=== PATIENT | male | born 1945 | race Asian ===

== ENCOUNTER 2018-02-18 13:45 | Emergency (ER) | payer MEDICARE, OTHER ==
[~2018-02-18] VITALS: Ht 162.6 cm; Wt 78.6 kg
[~2018-02-18 13:45] MED LIST: ASPI-556 PO; DIVA-54 PO; DIVA500T2 PO; FISH1CAP8 PO; LEVO100 PO; METO-408 PO; PRAV40TA4 PO
[2018-02-18] MEDS ORDERED: ATOR20TA86 PO (13:48)
[2018-02-18] MEDS ORDERED: METF500T6 PO (13:48)
[2018-02-18 13:59] LABS: GLUCOSE,POINT OF CARE 161 MG/DL (70-110)
[2018-02-18 14:47] LABS: BASOPHILS % (AUTO) 0.5 % (0.0-2.0); EOSINOPHILS % (AUTO) 1.8 % (1.0-6.0); HEMATOCRIT 45.1 % (41-53); LYMPHOCYTES # (AUTO) 2.5 K/uL (1.0-4.8); LYMPHOCYTES % (AUTO) 33.5 % (22.0-44.0); MEAN CORPUSCULAR HEMOGLOBIN 31.3 pg (26.0-34.0); MEAN CORPUSCULAR HGB CONC 33.2 G/dL (31.0-37.0); MEAN CORPUSCULAR VOLUME 94 fL (80-100); MONOCYTES # (AUTO) 0.6 K/uL (0.1-1.0); MONOCYTES % (AUTO) 8.5 % (2.0-9.0); NEUTROPHILS # (AUTO) 4.1 K/uL (1.8-7.7); NEUTROPHILS % (AUTO) 55.7 % (40.0-70.0); PLATELET COUNT (AUTO) 311 K/uL (150-450); RED BLOOD CELL COUNT(AUTO) 4.79 MIL/uL (4.50-5.90); RED CELL DISTRIBUTION WIDTH 14.6 % (11.5-14.5)
[2018-02-18 15:17] LABS: ANION GAP 10 mmol/L (8-16); CALCIUM, TOTAL 9.7 mg/dL (8.8-10.5); CARBON DIOXIDE 26 mmol/L (22-29); CHLORIDE 101 mmol/L (98-107); CREATININE 1.08 mg/dL (0.60-1.30); GLOMERULAR FILTR. RATE CALC > 60 mL/min (>60); GLUCOSE,RANDOM 154 mg/dL (70-110); POTASSIUM 3.6 mmol/L (3.5-5.1); SODIUM SERUM 137 mmol/L (136-145); UREA NITROGEN, BLOOD 17 mg/dL (7-18)
[2018-02-18 15:24] LABS: ALANINE AMINOTRANSFERASE 47 U/L (12-78); ALBUMIN 3.9 g/dL (3.4-5.0); ALKALINE PHOSPHATASE 68 U/L (46-116); ASPARTATE AMINOTRANSFERASE 24 U/L (15-37); BILIRUBIN,TOTAL 0.4 mg/dL (0.1-1.0); LIPASE 184 U/L (73-393)
[2018-02-18 16:10] LABS: APPEARANCE,URINE CLEAR (CLEAR); BILIRUBIN,URINE NEGATIVE (NEGATIVE); GLUCOSE, URINE (UA) NEGATIVE (NEGATIVE); KETONES,URINE NEGATIVE (NEGATIVE); LEUKOCYTE ESTERASE ,URINE NEGATIVE (NEGATIVE); NITRATE,URINE NEGATIVE (NEGATIVE); OCCULT BLOOD,URINE NEGATIVE (NEGATIVE); PROTEIN,URINE NEGATIVE (NEGATIVE); UROBILINOGEN,URINE 0.2 mg/dL (<=1.0)
[2018-02-18] MEDS ORDERED: SODIUM CHLORIDE 0.9% 1,000 ML IV ONE (17:30)
[2018-02-18] MEDS ORDERED: SODIUM CHLORIDE 0.9% 100 ML ONE (17:53)
[2018-02-18] MEDS ORDERED: IOVERSOL 320 MG/ML 100 ML VIAL ONE (17:53)
[2018-02-18 20:14] VITALS: BP 128/89
== END 2018-02-18 20:21 | disposition home or self-care (01) ==
LOC: EMS 13:46
DX: R10.32 Left lower quadrant pain (principal); F31.9 Bipolar disorder, unspecified; E78.00 Pure hypercholesterolemia, unspecified; I10 Essential (primary) hypertension; Z88.0 Allergy status to penicillin; Z79.82 Long term (current) use of aspirin; Z79.84 Long term (current) use of oral hypoglycemic drugs
CPT/HCPCS: 36415; 74177; 80053; 81003; 82962; 83690; 85025; 85610; 85730; 93005; 99285; J7030; J7050; Q9967

== ENCOUNTER 2019-01-12 21:48 | Inpatient (IN) | payer MEDICARE, MEDICAID ==
[~2019-01-12] VITALS: Ht 157.5 cm; Wt 65.3 kg
[~2019-01-12 21:48] MED LIST changes: +ATOR20TA86 PO; -DIVA500T2 PO; +METF-960 PO; -PRAV40TA4 PO
[2019-01-12] MEDS ORDERED: LEVO5TAB29 PO (22:27)
[2019-01-12] MEDS ORDERED: TAMS-1 PO (22:27)
[2019-01-12] MEDS ORDERED: ISOS30TA6 PO (22:27)
[2019-01-12] MEDS ORDERED: METO25XL PO (22:27)
[2019-01-12 22:35] LABS: BASOPHILS % (AUTO) 0.6 % (0.0-2.0); EOSINOPHILS % (AUTO) 1.5 % (1.0-6.0); HEMATOCRIT 41.8 % (41-53); HEMOGLOBIN 13.5 g/dL (13.5-17.5); LYMPHOCYTES # (AUTO) 1.4 K/uL (1.0-4.8); MEAN CORPUSCULAR HEMOGLOBIN 30.8 pg (26.0-34.0); MEAN CORPUSCULAR HGB CONC 32.3 G/dL (31.0-37.0); MEAN CORPUSCULAR VOLUME 95 fL (80-100); MONOCYTES # (AUTO) 0.8 K/uL (0.1-1.0); MONOCYTES % (AUTO) 14.1 % (2.0-9.0); NEUTROPHILS # (AUTO) 3.5 K/uL (1.8-7.7); NEUTROPHILS % (AUTO) 59.8 % (40.0-70.0); PLATELET COUNT (AUTO) 304 K/uL (150-450); RED BLOOD CELL COUNT(AUTO) 4.39 MIL/uL (4.50-5.90); RED CELL DISTRIBUTION WIDTH 15.2 % (11.5-14.5)
[2019-01-12 22:44] LABS: GLUCOSE,POINT OF CARE 166 MG/DL (70-110)
[2019-01-12 22:47] LABS: ANION GAP 10 mmol/L (8-16); CALCIUM, TOTAL 9.5 mg/dL (8.8-10.5); CARBON DIOXIDE 26 mmol/L (22-29); CHLORIDE 107 mmol/L (98-107); CREATININE 0.97 mg/dL (0.60-1.30); GLOMERULAR FILTR. RATE CALC > 60 mL/min (>60); GLUCOSE,RANDOM 163 mg/dL (70-110); POTASSIUM 3.2 mmol/L (3.5-5.1); SODIUM SERUM 143 mmol/L (136-145); UREA NITROGEN, BLOOD 19 mg/dL (7-18)
[2019-01-12 23:02] LABS: ALANINE AMINOTRANSFERASE 56 U/L (12-78); ALBUMIN 3.4 g/dL (3.4-5.0); ALKALINE PHOSPHATASE 55 U/L (46-116); ASPARTATE AMINOTRANSFERASE 49 U/L (15-37); BILIRUBIN,TOTAL 0.5 mg/dL (0.1-1.0); THYROID STIMULATING HORMONE 2.48 uIU/mL (0.36-3.74); TOTAL PROTEIN, SERUM 7.2 g/dL (6.4-8.2); VALPROIC ACID 24 mcg/mL (50-100)
[2019-01-12 23:52] LABS: AMPHET/METH SCREEN,URINE NEGATIVE (NEGATIVE); BARBITURATE SCREEN, URINE NEGATIVE (NEGATIVE); BENZODIAZEPINES SCREEN,URINE NEGATIVE (NEGATIVE); CANNABINOID SCREEN,URINE NEGATIVE (NEGATIVE); COCAINE SCREEN,URINE NEGATIVE (NEGATIVE); METHADONE SCREEN, URINE NEGATIVE (NEGATIVE); OPIATE SCREEN,URINE NEGATIVE (NEGATIVE); PHENCYCLIDINE SCREEN,URINE NEGATIVE (NEGATIVE)
[2019-01-13] MEDS ORDERED: POTASSIUM CHLORIDE 20 MEQ ER TABLET PO ONE (03:30)
[2019-01-13 03:43] LABS: APPEARANCE,URINE CLEAR (CLEAR); GLUCOSE, URINE (UA) 100 mg/dL (NEGATIVE); KETONES,URINE 15 mg/dL (NEGATIVE); LEUKOCYTE ESTERASE ,URINE NEGATIVE (NEGATIVE); NITRATE,URINE NEGATIVE (NEGATIVE); OCCULT BLOOD,URINE NEGATIVE (NEGATIVE); PROTEIN,URINE POS 1+ (NEGATIVE)
[2019-01-13 03:44] LABS: BILIRUBIN,URINE PRELIM. POSITIVE (NEGATIVE)
[2019-01-13 03:51] LABS: BACTERIA,URINE Few /HPF (None Seen); RBC,URINE 0-2 /HPF (0-2); WBC,URINE 0-2 /HPF (0-5)
[2019-01-13 03:52] LABS: CALCIUM OXALATE CRYSTALS,UR Many /LPF (None Seen); SQUAMOUS EPITHELIAL CELL,UR None Seen /LPF (None Seen)
[2019-01-13] MEDS ORDERED: LORazepam 2 MG TABLET PO PRN (04:45)
[2019-01-13] MEDS ORDERED: ZOLPIDEM TARTRATE 10 MG TABLET PO PRN (04:45)
[2019-01-13] MEDS ORDERED: HALOPERIDOL 5 MG TABLET PO PRN (04:45)
[2019-01-13 06:26] VITALS: BP 156/71
[2019-01-13] MEDS ORDERED: IBUPROFEN 600 MG TABLET PO PRN (13:00)
[2019-01-13] MEDS: DIVALPROEX SODIUM 500 MG ER TABLET PO SCH (17:05)
[2019-01-13] MEDS: MetFORMIN HCL 500 MG TABLET PO SCH (17:05)
[2019-01-13 18:50] VITALS: BP 117/58
[2019-01-13] MEDS: ATORVASTATIN CALCIUM 20 MG TABLET PO SCH (22:33)
[2019-01-14 00:50] VITALS: BP 152/80
[2019-01-14] MEDS: LEVOTHYROXINE SODIUM 100 MCG TABLET PO SCH (07:04)
[2019-01-14] MEDS: MetFORMIN HCL 500 MG TABLET PO SCH ×2 (07:04→16:48)
[2019-01-14 07:27] LABS: ANION GAP 7 mmol/L (8-16); CALCIUM, TOTAL 9.5 mg/dL (8.8-10.5); CARBON DIOXIDE 28 mmol/L (22-29); CHLORIDE 102 mmol/L (98-107); CHOL/HDL RATIO 2.8 (4.2-7.3); CHOLESTEROL 130 mg/dL (131-200); CREATINE KINASE, TOTAL ONLY 653 U/L (39-308); CREATININE 0.82 mg/dL (0.60-1.30); FREE T4 (FREE THYROXINE) 1.16 ng/dL (0.76-1.46); GLOMERULAR FILTR. RATE CALC > 60 mL/min (>60); GLUCOSE,RANDOM 91 mg/dL (70-110); HDL CHOLESTEROL 46 mg/dL (40-60); LDL CHOL (CALC.) 70 mg/dL (0-130); POTASSIUM 3.7 mmol/L (3.5-5.1); SODIUM SERUM 137 mmol/L (136-145); THYROID STIMULATING HORMONE 4.98 uIU/mL (0.36-3.74); TRIGLYCERIDES 68 mg/dL (15-150); UREA NITROGEN, BLOOD 9 mg/dL (7-18)
[2019-01-14 07:30] LABS: HEMOGLOBIN A1C 6.7 % (4.5-6.2)
[2019-01-14] MEDS: ASPIRIN 81 MG EC TABLET PO SCH (08:16)
[2019-01-14] MEDS: DIVALPROEX SODIUM 500 MG ER TABLET PO SCH ×2 (08:17→16:53)
[2019-01-14] MEDS: ISOSORBIDE MONONITRATE 30 MG ER TABLET PO SCH (08:17)
[2019-01-14] MEDS: METOPROLOL SUCCINATE 25 MG ER TABLET PO SCH (08:17)
[2019-01-14] MEDS ORDERED: TAMSULOSIN HCL 0.4 MG CAPSULE PO SCH (09:00)
[2019-01-14 09:51] VITALS: BP 157/68
[2019-01-14] MEDS: HALOPERIDOL 5 MG TABLET PO SCH (16:53)
[2019-01-14 17:51] VITALS: BP 134/68
[2019-01-14] MEDS ORDERED: GLUCAGON,HUMAN RECOMBINANT 1 MG VIAL IM PRN (19:15)
[2019-01-14] MEDS: ATORVASTATIN CALCIUM 20 MG TABLET PO SCH (21:00)
[2019-01-15 00:59] VITALS: BP 112/82
[2019-01-15 01:49] LABS: GLUCOMETER DEV NAME(LOC) 3E.I; GLUCOSE,POINT OF CARE 98 MG/DL (70-110)
[2019-01-15 06:14] LABS: GLUCOMETER DEV NAME(LOC) 3E.I; GLUCOSE,POINT OF CARE 77 MG/DL (70-110)
[2019-01-15] MEDS: MetFORMIN HCL 500 MG TABLET PO SCH ×2 (07:10→17:46)
[2019-01-15] MEDS: LEVOTHYROXINE SODIUM 100 MCG TABLET PO SCH (07:10)
[2019-01-15 08:00] VITALS: BP 137/61
[2019-01-15] MEDS: METOPROLOL SUCCINATE 25 MG ER TABLET PO SCH (08:33)
[2019-01-15] MEDS: ISOSORBIDE MONONITRATE 30 MG ER TABLET PO SCH (08:33)
[2019-01-15] MEDS: ASPIRIN 81 MG EC TABLET PO SCH (08:33)
[2019-01-15] MEDS: HALOPERIDOL 5 MG TABLET PO SCH (09:00)
[2019-01-15] MEDS: DIVALPROEX SODIUM 500 MG ER TABLET PO SCH ×2 (09:00→20:05)
[2019-01-15] MEDS: NITROGLYCERIN 0.4 MG SUBLINGUAL TABLET #25 SL PRN (10:01)
[2019-01-15 10:02] VITALS: BP 129/81
[2019-01-15] MEDS: GuaiFENesin/D-METHORPHAN [SUGAR-FREE] 200-20MG/10 ML SYRUP UDCUP PO PRN (10:02)
[2019-01-15 11:49] LABS: GLUCOMETER DEV NAME(LOC) 3EX.; GLUCOSE,POINT OF CARE 87 MG/DL (70-110)
[2019-01-15] MEDS: INSULIN LISPRO 100 UNITS/ML SQ PRN (12:23)
[2019-01-15 16:39] LABS: GLUCOMETER DEV NAME(LOC) 3EX.; GLUCOSE,POINT OF CARE 82 MG/DL (70-110)
[2019-01-15] MEDS ORDERED: HALOPERIDOL 5 MG TABLET PO SCH (17:00)
[2019-01-15 17:18] VITALS: BP 143/75
[2019-01-15] MEDS: HALOPERIDOL 10 MG TABLET PO SCH (20:03)
[2019-01-15] MEDS: TAMSULOSIN HCL 0.4 MG CAPSULE PO SCH (20:03)
[2019-01-15] MEDS: ATORVASTATIN CALCIUM 20 MG TABLET PO SCH (20:05)
[2019-01-15 21:25] LABS: GLUCOMETER DEV NAME(LOC) 3E.I; GLUCOSE,POINT OF CARE 76 MG/DL (70-110)
[2019-01-16 04:40] VITALS: BP 123/69
[2019-01-16] MEDS: GuaiFENesin/D-METHORPHAN [SUGAR-FREE] 200-20MG/10 ML SYRUP UDCUP PO PRN (06:08)
[2019-01-16 06:29] LABS: GLUCOMETER DEV NAME(LOC) 3E.I; GLUCOSE,POINT OF CARE 88 MG/DL (70-110)
[2019-01-16] MEDS: INSULIN LISPRO 100 UNITS/ML SQ PRN (06:47)
[2019-01-16] MEDS: LEVOTHYROXINE SODIUM 100 MCG TABLET PO SCH (06:55)
[2019-01-16] MEDS: MetFORMIN HCL 500 MG TABLET PO SCH (07:03)
[2019-01-16 08:40] VITALS: BP 163/84
[2019-01-16] MEDS: ASPIRIN 81 MG EC TABLET PO SCH (08:45)
[2019-01-16] MEDS: ISOSORBIDE MONONITRATE 30 MG ER TABLET PO SCH (08:45)
[2019-01-16] MEDS: METOPROLOL SUCCINATE 25 MG ER TABLET PO SCH (08:45)
[2019-01-16 11:34] LABS: GLUCOMETER DEV NAME(LOC) 3EX.; GLUCOSE,POINT OF CARE 120 MG/DL (70-110)
[2019-01-16 17:14] LABS: GLUCOMETER DEV NAME(LOC) 3EX.; GLUCOSE,POINT OF CARE 111 MG/DL (70-110)
[2019-01-16 17:44] VITALS: BP 154/84
[2019-01-16] MEDS: TAMSULOSIN HCL 0.4 MG CAPSULE PO SCH (20:28)
[2019-01-16] MEDS: ATORVASTATIN CALCIUM 20 MG TABLET PO SCH (20:28)
[2019-01-16] MEDS: HALOPERIDOL 10 MG TABLET PO SCH (20:33)
[2019-01-16] MEDS: DIVALPROEX SODIUM 500 MG ER TABLET PO SCH (20:33)
[2019-01-16 20:34] LABS: GLUCOMETER DEV NAME(LOC) 3EX.; GLUCOSE,POINT OF CARE 108 MG/DL (70-110)
[2019-01-17 05:32] VITALS: BP 163/81
[2019-01-17 05:35] LABS: GLUCOMETER DEV NAME(LOC) 3E.I; GLUCOSE,POINT OF CARE 85 MG/DL (70-110)
[2019-01-17] MEDS: LEVOTHYROXINE SODIUM 100 MCG TABLET PO SCH (07:12)
[2019-01-17] MEDS: ASPIRIN 81 MG EC TABLET PO SCH (08:56)
[2019-01-17] MEDS: METOPROLOL SUCCINATE 25 MG ER TABLET PO SCH (08:57)
[2019-01-17] MEDS: ISOSORBIDE MONONITRATE 30 MG ER TABLET PO SCH (08:57)
[2019-01-17] MEDS: MetFORMIN HCL 500 MG TABLET PO SCH ×2 (08:59→09:10)
[2019-01-17 09:01] VITALS: BP 133/82
[2019-01-17] MEDS: NITROGLYCERIN 0.4 MG SUBLINGUAL TABLET #25 SL PRN (09:02)
[2019-01-17 10:44] LABS: GLUCOMETER DEV NAME(LOC) 3EX.; GLUCOSE,POINT OF CARE 102 MG/DL (70-110)
[2019-01-17 11:19] LABS: GLUCOMETER DEV NAME(LOC) 3EX.; GLUCOSE,POINT OF CARE 143 MG/DL (70-110)
[2019-01-17 12:05] LABS: GLUCOMETER DEV NAME(LOC) 3EX.; GLUCOSE,POINT OF CARE 102 MG/DL (70-110)
[2019-01-17] MEDS: HALOPERIDOL 5 MG TABLET PO SCH (17:04)
[2019-01-17 17:20] LABS: GLUCOMETER DEV NAME(LOC) 3EX.; GLUCOSE,POINT OF CARE 108 MG/DL (70-110)
[2019-01-17] MEDS: TAMSULOSIN HCL 0.4 MG CAPSULE PO SCH (20:48)
[2019-01-17] MEDS: ATORVASTATIN CALCIUM 20 MG TABLET PO SCH (20:52)
[2019-01-17] MEDS: DIVALPROEX SODIUM 500 MG ER TABLET PO SCH (20:52)
[2019-01-17 22:02] VITALS: BP 148/85
[2019-01-17 22:10] LABS: GLUCOMETER DEV NAME(LOC) 3EX.; GLUCOSE,POINT OF CARE 106 MG/DL (70-110)
[2019-01-18 06:54] LABS: GLUCOMETER DEV NAME(LOC) 3E.I; GLUCOSE,POINT OF CARE 97 MG/DL (70-110)
[2019-01-18] MEDS: LEVOTHYROXINE SODIUM 100 MCG TABLET PO SCH (07:05)
[2019-01-18 08:00] VITALS: BP 134/77
[2019-01-18] MEDS: METOPROLOL SUCCINATE 25 MG ER TABLET PO SCH (08:24)
[2019-01-18] MEDS: ASPIRIN 81 MG EC TABLET PO SCH (08:24)
[2019-01-18] MEDS: MetFORMIN HCL 500 MG TABLET PO SCH (08:24)
[2019-01-18] MEDS: HALOPERIDOL 5 MG TABLET PO SCH ×2 (08:25→16:09)
[2019-01-18] MEDS: ISOSORBIDE MONONITRATE 30 MG ER TABLET PO SCH (08:25)
[2019-01-18 09:52] VITALS: BP 130/77
[2019-01-18] MEDS: NITROGLYCERIN 0.4 MG SUBLINGUAL TABLET #25 SL PRN (09:52)
[2019-01-18 11:55] LABS: GLUCOMETER DEV NAME(LOC) 3EX.; GLUCOSE,POINT OF CARE 122 MG/DL (70-110)
[2019-01-18 16:14] LABS: GLUCOMETER DEV NAME(LOC) 3EX.; GLUCOSE,POINT OF CARE 126 MG/DL (70-110)
[2019-01-18 16:15] VITALS: BP 119/63
[2019-01-18] MEDS: GuaiFENesin/D-METHORPHAN [SUGAR-FREE] 200-20MG/10 ML SYRUP UDCUP PO PRN (19:23)
[2019-01-18] MEDS: TAMSULOSIN HCL 0.4 MG CAPSULE PO SCH (20:05)
[2019-01-18] MEDS: DIVALPROEX SODIUM 500 MG ER TABLET PO SCH (20:05)
[2019-01-18] MEDS: ATORVASTATIN CALCIUM 20 MG TABLET PO SCH (20:05)
[2019-01-18 20:50] LABS: GLUCOMETER DEV NAME(LOC) 3EX.; GLUCOSE,POINT OF CARE 99 MG/DL (70-110)
[2019-01-19] MEDS: LEVOTHYROXINE SODIUM 100 MCG TABLET PO SCH (06:02)
[2019-01-19] MEDS: GuaiFENesin/D-METHORPHAN [SUGAR-FREE] 200-20MG/10 ML SYRUP UDCUP PO PRN ×2 (06:02→20:53)
[2019-01-19 06:05] LABS: GLUCOMETER DEV NAME(LOC) 3E.I; GLUCOSE,POINT OF CARE 88 MG/DL (70-110)
[2019-01-19 07:02] VITALS: BP 134/77
[2019-01-19] MEDS: HALOPERIDOL 5 MG TABLET PO SCH (08:44)
[2019-01-19] MEDS: MetFORMIN HCL 500 MG TABLET PO SCH (08:44)
[2019-01-19] MEDS: ASPIRIN 81 MG EC TABLET PO SCH (08:44)
[2019-01-19] MEDS: ISOSORBIDE MONONITRATE 30 MG ER TABLET PO SCH (08:45)
[2019-01-19] MEDS: METOPROLOL SUCCINATE 25 MG ER TABLET PO SCH (08:45)
[2019-01-19 09:13] VITALS: BP 135/79
[2019-01-19 11:20] LABS: GLUCOMETER DEV NAME(LOC) 3EX.; GLUCOSE,POINT OF CARE 94 MG/DL (70-110)
[2019-01-19 16:00] VITALS: BP 144/69
[2019-01-19 16:14] LABS: GLUCOMETER DEV NAME(LOC) 3EX.; GLUCOSE,POINT OF CARE 99 MG/DL (70-110)
[2019-01-19] MEDS: HALOPERIDOL 10 MG TABLET PO SCH (17:44)
[2019-01-19] MEDS: ATORVASTATIN CALCIUM 20 MG TABLET PO SCH ×2 (19:26→20:43)
[2019-01-19] MEDS: TAMSULOSIN HCL 0.4 MG CAPSULE PO SCH ×2 (19:26→20:43)
[2019-01-19] MEDS: DIVALPROEX SODIUM 500 MG ER TABLET PO SCH ×2 (19:27→20:43)
[2019-01-19 21:14] LABS: GLUCOMETER DEV NAME(LOC) 3EX.; GLUCOSE,POINT OF CARE 92 MG/DL (70-110)
[2019-01-20 04:29] VITALS: BP 112/67
[2019-01-20] MEDS: ACETAMINOPHEN 325 MG TABLET PO PRN ×2 (04:29→17:08)
[2019-01-20 06:14] LABS: GLUCOMETER DEV NAME(LOC) 3E.I; GLUCOSE,POINT OF CARE 85 MG/DL (70-110)
[2019-01-20] MEDS: LEVOTHYROXINE SODIUM 100 MCG TABLET PO SCH (07:07)
[2019-01-20 08:00] VITALS: BP 138/70
[2019-01-20] MEDS: ISOSORBIDE MONONITRATE 30 MG ER TABLET PO SCH (08:27)
[2019-01-20] MEDS: ASPIRIN 81 MG EC TABLET PO SCH (08:27)
[2019-01-20] MEDS: METOPROLOL SUCCINATE 25 MG ER TABLET PO SCH (08:27)
[2019-01-20] MEDS: MetFORMIN HCL 500 MG TABLET PO SCH (08:27)
[2019-01-20] MEDS: HALOPERIDOL 10 MG TABLET PO SCH ×2 (08:27→17:10)
[2019-01-20] MEDS: GuaiFENesin/D-METHORPHAN [SUGAR-FREE] 200-20MG/10 ML SYRUP UDCUP PO PRN ×2 (10:21→18:16)
[2019-01-20 11:14] LABS: GLUCOMETER DEV NAME(LOC) 3EX.; GLUCOSE,POINT OF CARE 109 MG/DL (70-110)
[2019-01-20 17:20] LABS: GLUCOMETER DEV NAME(LOC) 3EX.; GLUCOSE,POINT OF CARE 76 MG/DL (70-110)
[2019-01-20 19:26] VITALS: BP 135/88
[2019-01-20 20:40] LABS: GLUCOMETER DEV NAME(LOC) 3EX.; GLUCOSE,POINT OF CARE 100 MG/DL (70-110)
[2019-01-20 20:52] VITALS: BP 123/74
[2019-01-20] MEDS: NITROGLYCERIN 0.4 MG SUBLINGUAL TABLET #25 SL PRN (20:52)
[2019-01-20] MEDS: ATORVASTATIN CALCIUM 20 MG TABLET PO SCH (21:00)
[2019-01-20] MEDS: TAMSULOSIN HCL 0.4 MG CAPSULE PO SCH (21:00)
[2019-01-20] MEDS: DIVALPROEX SODIUM 500 MG ER TABLET PO SCH (21:00)
[2019-01-21 05:41] LABS: GLUCOMETER DEV NAME(LOC) 3E.I; GLUCOSE,POINT OF CARE 90 MG/DL (70-110)
[2019-01-21 05:54] VITALS: BP 121/78
[2019-01-21] MEDS: LEVOTHYROXINE SODIUM 100 MCG TABLET PO SCH (06:03)
[2019-01-21] MEDS: ACETAMINOPHEN 325 MG TABLET PO PRN ×2 (06:03→18:46)
[2019-01-21] MEDS: GuaiFENesin/D-METHORPHAN [SUGAR-FREE] 200-20MG/10 ML SYRUP UDCUP PO PRN ×2 (07:14→14:46)
[2019-01-21 09:55] VITALS: BP 117/65
[2019-01-21] MEDS: NITROGLYCERIN 0.4 MG SUBLINGUAL TABLET #25 SL PRN (09:57)
[2019-01-21] MEDS: ISOSORBIDE MONONITRATE 30 MG ER TABLET PO SCH (09:58)
[2019-01-21] MEDS: MetFORMIN HCL 500 MG TABLET PO SCH (09:58)
[2019-01-21] MEDS: ASPIRIN 81 MG EC TABLET PO SCH (09:58)
[2019-01-21] MEDS: METOPROLOL SUCCINATE 25 MG ER TABLET PO SCH (09:58)
[2019-01-21] MEDS: HALOPERIDOL 10 MG TABLET PO SCH ×2 (09:58→16:56)
[2019-01-21 11:29] LABS: GLUCOMETER DEV NAME(LOC) 3EX.; GLUCOSE,POINT OF CARE 92 MG/DL (70-110)
[2019-01-21] MEDS: INSULIN LISPRO 100 UNITS/ML SQ PRN ×3 (11:46→20:45)
[2019-01-21 16:50] VITALS: BP 100/57
[2019-01-21 17:10] LABS: GLUCOMETER DEV NAME(LOC) 3EX.; GLUCOSE,POINT OF CARE 96 MG/DL (70-110)
[2019-01-21 18:46] VITALS: BP 111/69
[2019-01-21] MEDS: ATORVASTATIN CALCIUM 20 MG TABLET PO SCH (20:17)
[2019-01-21] MEDS: DIVALPROEX SODIUM 500 MG ER TABLET PO SCH (20:17)
[2019-01-21] MEDS: TAMSULOSIN HCL 0.4 MG CAPSULE PO SCH (20:18)
[2019-01-21 20:45] LABS: GLUCOMETER DEV NAME(LOC) 3EX.; GLUCOSE,POINT OF CARE 104 MG/DL (70-110)
[2019-01-22 03:35] VITALS: BP 129/60
[2019-01-22] MEDS: ACETAMINOPHEN 325 MG TABLET PO PRN (03:40)
[2019-01-22 05:40] LABS: GLUCOMETER DEV NAME(LOC) 3E.I; GLUCOSE,POINT OF CARE 81 MG/DL (70-110)
[2019-01-22 06:50] VITALS: BP 121/61
[2019-01-22] MEDS: NITROGLYCERIN 0.4 MG SUBLINGUAL TABLET #25 SL PRN (06:50)
[2019-01-22] MEDS: LEVOTHYROXINE SODIUM 100 MCG TABLET PO SCH (07:03)
[2019-01-22] MEDS: ISOSORBIDE MONONITRATE 30 MG ER TABLET PO SCH (08:42)
[2019-01-22] MEDS: HALOPERIDOL 10 MG TABLET PO SCH ×2 (08:42→16:23)
[2019-01-22] MEDS: MetFORMIN HCL 500 MG TABLET PO SCH (08:42)
[2019-01-22] MEDS: ASPIRIN 81 MG EC TABLET PO SCH (08:42)
[2019-01-22] MEDS: METOPROLOL SUCCINATE 25 MG ER TABLET PO SCH (08:43)
[2019-01-22 10:18] VITALS: BP 128/69
[2019-01-22] MEDS: INSULIN LISPRO 100 UNITS/ML SQ PRN (11:25)
[2019-01-22 11:35] LABS: GLUCOMETER DEV NAME(LOC) 3EX.; GLUCOSE,POINT OF CARE 92 MG/DL (70-110)
[2019-01-22 16:50] LABS: GLUCOMETER DEV NAME(LOC) 3EX.; GLUCOSE,POINT OF CARE 104 MG/DL (70-110)
[2019-01-22 16:55] VITALS: BP 118/78
[2019-01-22] MEDS: DIVALPROEX SODIUM 500 MG ER TABLET PO SCH (21:00)
[2019-01-22] MEDS: TAMSULOSIN HCL 0.4 MG CAPSULE PO SCH (21:00)
[2019-01-22] MEDS: ATORVASTATIN CALCIUM 20 MG TABLET PO SCH (21:00)
[2019-01-22 22:50] LABS: GLUCOMETER DEV NAME(LOC) 3E.I; GLUCOSE,POINT OF CARE 117 MG/DL (70-110)
[2019-01-23 05:20] VITALS: BP 108/53
[2019-01-23] MEDS: NITROGLYCERIN 0.4 MG SUBLINGUAL TABLET #25 SL PRN (05:23)
[2019-01-23] MEDS: ACETAMINOPHEN 325 MG TABLET PO PRN ×3 (05:24→19:23)
[2019-01-23 06:00] LABS: GLUCOMETER DEV NAME(LOC) 3E.I; GLUCOSE,POINT OF CARE 83 MG/DL (70-110)
[2019-01-23] MEDS: LEVOTHYROXINE SODIUM 100 MCG TABLET PO SCH (06:50)
[2019-01-23] MEDS: METOPROLOL SUCCINATE 25 MG ER TABLET PO SCH (08:12)
[2019-01-23] MEDS: ASPIRIN 81 MG EC TABLET PO SCH (08:12)
[2019-01-23] MEDS: HALOPERIDOL 10 MG TABLET PO SCH ×2 (08:12→17:27)
[2019-01-23] MEDS: MetFORMIN HCL 500 MG TABLET PO SCH (08:12)
[2019-01-23] MEDS: ISOSORBIDE MONONITRATE 30 MG ER TABLET PO SCH (08:13)
[2019-01-23 08:19] VITALS: BP 110/70
[2019-01-23] MEDS: INSULIN LISPRO 100 UNITS/ML SQ PRN (11:35)
[2019-01-23 12:05] LABS: GLUCOMETER DEV NAME(LOC) 3EX.; GLUCOSE,POINT OF CARE 82 MG/DL (70-110)
[2019-01-23] MEDS: GuaiFENesin/D-METHORPHAN [SUGAR-FREE] 200-20MG/10 ML SYRUP UDCUP PO PRN (12:44)
[2019-01-23] MEDS ORDERED: DEXTROSE 50%-WATER 25 GM/50 ML SYG IVP PRN (14:15)
[2019-01-23 16:28] VITALS: BP 106/57
[2019-01-23 17:46] LABS: GLUCOMETER DEV NAME(LOC) 3EX.; GLUCOSE,POINT OF CARE 69 MG/DL (70-110)
[2019-01-23 19:23] VITALS: BP 109/58
[2019-01-23] MEDS: ATORVASTATIN CALCIUM 20 MG TABLET PO SCH (21:37)
[2019-01-23] MEDS: TAMSULOSIN HCL 0.4 MG CAPSULE PO SCH (21:37)
[2019-01-23] MEDS: DIVALPROEX SODIUM 500 MG ER TABLET PO SCH (21:37)
[2019-01-23 22:00] LABS: GLUCOMETER DEV NAME(LOC) 3EX.; GLUCOSE,POINT OF CARE 113 MG/DL (70-110)
[2019-01-24 05:54] LABS: GLUCOMETER DEV NAME(LOC) 3E.I; GLUCOSE,POINT OF CARE 92 MG/DL (70-110)
[2019-01-24 06:05] VITALS: BP 123/68
[2019-01-24] MEDS: ACETAMINOPHEN 325 MG TABLET PO PRN ×2 (06:09→17:40)
[2019-01-24] MEDS: LEVOTHYROXINE SODIUM 100 MCG TABLET PO SCH (06:09)
[2019-01-24] MEDS: ASPIRIN 81 MG EC TABLET PO SCH (08:06)
[2019-01-24] MEDS: MetFORMIN HCL 500 MG TABLET PO SCH (08:06)
[2019-01-24] MEDS: ISOSORBIDE MONONITRATE 30 MG ER TABLET PO SCH (08:06)
[2019-01-24] MEDS: HALOPERIDOL 10 MG TABLET PO SCH ×2 (08:06→17:35)
[2019-01-24] MEDS: METOPROLOL SUCCINATE 25 MG ER TABLET PO SCH (08:07)
[2019-01-24 09:10] VITALS: BP 120/62
[2019-01-24 11:45] LABS: GLUCOMETER DEV NAME(LOC) 3EX.; GLUCOSE,POINT OF CARE 98 MG/DL (70-110)
[2019-01-24] MEDS: INSULIN LISPRO 100 UNITS/ML SQ PRN ×3 (12:07→22:32)
[2019-01-24 16:00] VITALS: BP 121/70
[2019-01-24 16:25] LABS: GLUCOMETER DEV NAME(LOC) 3EX.; GLUCOSE,POINT OF CARE 107 MG/DL (70-110)
[2019-01-24] MEDS: TAMSULOSIN HCL 0.4 MG CAPSULE PO SCH (20:42)
[2019-01-24] MEDS: ATORVASTATIN CALCIUM 20 MG TABLET PO SCH (20:42)
[2019-01-24] MEDS: DIVALPROEX SODIUM 500 MG ER TABLET PO SCH (20:42)
[2019-01-25 03:46] VITALS: BP 109/70
[2019-01-25 05:55] LABS: GLUCOMETER DEV NAME(LOC) 3E.I; GLUCOSE,POINT OF CARE 84 MG/DL (70-110)
[2019-01-25] MEDS: LEVOTHYROXINE SODIUM 100 MCG TABLET PO SCH (06:26)
[2019-01-25] MEDS: ISOSORBIDE MONONITRATE 30 MG ER TABLET PO SCH (08:34)
[2019-01-25] MEDS: ASPIRIN 81 MG EC TABLET PO SCH (08:34)
[2019-01-25] MEDS: HALOPERIDOL 10 MG TABLET PO SCH ×2 (08:34→16:21)
[2019-01-25] MEDS: MetFORMIN HCL 500 MG TABLET PO SCH (08:34)
[2019-01-25] MEDS: METOPROLOL SUCCINATE 25 MG ER TABLET PO SCH (08:34)
[2019-01-25] MEDS: GuaiFENesin/D-METHORPHAN [SUGAR-FREE] 200-20MG/10 ML SYRUP UDCUP PO PRN (09:50)
[2019-01-25 10:43] VITALS: BP 119/68
[2019-01-25 11:39] LABS: GLUCOMETER DEV NAME(LOC) 3EX.; GLUCOSE,POINT OF CARE 87 MG/DL (70-110)
[2019-01-25] MEDS: INSULIN LISPRO 100 UNITS/ML SQ PRN ×3 (11:45→21:10)
[2019-01-25 16:25] LABS: GLUCOMETER DEV NAME(LOC) 3EX.; GLUCOSE,POINT OF CARE 82 MG/DL (70-110)
[2019-01-25 17:36] VITALS: BP 106/62
[2019-01-25] MEDS: NITROGLYCERIN 0.4 MG SUBLINGUAL TABLET #25 SL PRN (19:19)
[2019-01-25 19:21] VITALS: BP 131/60
[2019-01-25 20:24] LABS: GLUCOMETER DEV NAME(LOC) 3EX.; GLUCOSE,POINT OF CARE 104 MG/DL (70-110)
[2019-01-25] MEDS: TAMSULOSIN HCL 0.4 MG CAPSULE PO SCH (20:40)
[2019-01-25] MEDS: DIVALPROEX SODIUM 500 MG ER TABLET PO SCH (20:40)
[2019-01-25] MEDS: ATORVASTATIN CALCIUM 20 MG TABLET PO SCH (20:40)
[2019-01-26 05:35] LABS: GLUCOMETER DEV NAME(LOC) 3E.I; GLUCOSE,POINT OF CARE 89 MG/DL (70-110)
[2019-01-26] MEDS: LEVOTHYROXINE SODIUM 100 MCG TABLET PO SCH (07:10)
[2019-01-26] MEDS: MetFORMIN HCL 500 MG TABLET PO SCH (08:14)
[2019-01-26] MEDS: ASPIRIN 81 MG EC TABLET PO SCH (08:15)
[2019-01-26] MEDS: ISOSORBIDE MONONITRATE 30 MG ER TABLET PO SCH (08:15)
[2019-01-26] MEDS: HALOPERIDOL 10 MG TABLET PO SCH ×2 (08:15→17:38)
[2019-01-26] MEDS: METOPROLOL SUCCINATE 25 MG ER TABLET PO SCH (08:15)
[2019-01-26 10:21] VITALS: BP 131/80
[2019-01-26] MEDS ORDERED: HALO10 PO (10:38)
[2019-01-26 12:05] LABS: GLUCOMETER DEV NAME(LOC) 3EX.; GLUCOSE,POINT OF CARE 114 MG/DL (70-110)
[2019-01-26] MEDS: INSULIN LISPRO 100 UNITS/ML SQ PRN (13:29)
[2019-01-26 17:45] LABS: GLUCOMETER DEV NAME(LOC) 3EX.; GLUCOSE,POINT OF CARE 97 MG/DL (70-110)
== END 2019-01-26 19:20 | disposition home or self-care (01) | DRG 885 ==
LOC: EMS 21:49 → 3EX 01-13 04:32
PROVIDERS: ADMIT Psychiatry & Neurology Psychiatry; ATTEND Psychiatry & Neurology Psychiatry
DX: F31.2 Bipolar disorder, current episode manic severe with psychotic features (principal); F29 Unspecified psychosis not due to a substance or known physiological condition; E78.00 Pure hypercholesterolemia, unspecified; E11.9 Type 2 diabetes mellitus without complications; E03.9 Hypothyroidism, unspecified; E78.5 Hyperlipidemia, unspecified; E87.6 Hypokalemia; I10 Essential (primary) hypertension; G47.00 Insomnia, unspecified; F41.9 Anxiety disorder, unspecified; I25.10 Atherosclerotic heart disease of native coronary artery without angina pectoris; N40.0 Benign prostatic hyperplasia without lower urinary tract symptoms; Z80.0 Family history of malignant neoplasm of digestive organs; Z82.5 Family history of asthma and other chronic lower respiratory diseases; Z85.46 Personal history of malignant neoplasm of prostate; Z86.73 Personal history of transient ischemic attack (TIA), and cerebral infarction without residual deficits; Z91.19 Patient's noncompliance with other medical treatment and regimen; Z88.0 Allergy status to penicillin; Z91.013 Allergy to seafood
CPT/HCPCS: 70450; 82607; 82746; 83036; 83735; 84439; 84443; 93005; G0378; G0480

== ENCOUNTER 2019-08-14 19:59 | Inpatient (IN) | payer MEDICARE, OTHER ==
[~2019-08-14] VITALS: Ht 157.5 cm; Wt 64.3 kg
[~2019-08-14 19:59] MED LIST changes: -FISH1CAP8 PO; +HALO10 PO; +ISOS30TA6 PO; -METO-408 PO; +METO25XL PO; +TAMS-1 PO
[2019-08-14] MEDS ORDERED: RISP4 PO (20:28)
[2019-08-14] MEDS ORDERED: MULT1CAP32 PO (20:28)
[2019-08-14] MEDS ORDERED: OMEP20 PO (20:28)
[2019-08-14] MEDS ORDERED: HALDOL IM (20:28)
[2019-08-14] MEDS ORDERED: INSU100V SQ (20:28)
[2019-08-14] MEDS ORDERED: CLON-465 PO (20:28)
[2019-08-14 20:54] LABS: GLUCOSE,POINT OF CARE 97 MG/DL (70-110)
[2019-08-14 20:56] LABS: BASOPHILS % (AUTO) 0.7 % (0.0-2.0); EOSINOPHILS % (AUTO) 1.9 % (1.0-6.0); HEMATOCRIT 36.4 % (41-53); HEMOGLOBIN 12.2 g/dL (13.5-17.5); LYMPHOCYTES # (AUTO) 1.9 K/uL (1.0-4.8); LYMPHOCYTES % (AUTO) 36.8 % (22.0-44.0); MEAN CORPUSCULAR HEMOGLOBIN 32.5 pg (26.0-34.0); MEAN CORPUSCULAR HGB CONC 33.6 G/dL (31.0-37.0); MEAN CORPUSCULAR VOLUME 97 fL (80-100); MONOCYTES # (AUTO) 0.6 K/uL (0.1-1.0); MONOCYTES % (AUTO) 11.2 % (2.0-9.0); NEUTROPHILS # (AUTO) 2.6 K/uL (1.8-7.7); NEUTROPHILS % (AUTO) 49.4 % (40.0-70.0); PLATELET COUNT (AUTO) 268 K/uL (150-450); RED BLOOD CELL COUNT(AUTO) 3.77 MIL/uL (4.50-5.90); RED CELL DISTRIBUTION WIDTH 15.4 % (11.5-14.5)
[2019-08-14] MEDS ORDERED: DiphenhydrAMINE HCL 50 MG/ML VIAL IVP ONE (21:00)
[2019-08-14] MEDS ORDERED: ASPIRIN 81 MG CHEWABLE TABLET PO ONE (21:00)
[2019-08-14 21:09] LABS: ANION GAP 7 mmol/L (8-16); CALCIUM, TOTAL 9.2 mg/dL (8.8-10.5); CARBON DIOXIDE 28 mmol/L (22-29); CHLORIDE 104 mmol/L (98-107); CREATININE 0.95 mg/dL (0.60-1.30); GLUCOSE,RANDOM 92 mg/dL (70-110); POTASSIUM 3.9 mmol/L (3.5-5.1); SODIUM SERUM 139 mmol/L (136-145); UREA NITROGEN, BLOOD 23 mg/dL (7-18)
[2019-08-14 21:10] LABS: GLOMERULAR FILTR. RATE CALC > 60 mL/min (>60)
[2019-08-14 21:21] LABS: PROTHROMBIN TIME 10.2 SEC (9.4-11.6)
[2019-08-14 21:25] LABS: B-TYPE NATRIURETIC PEPTIDE 53 pg/mL (0-100)
[2019-08-14] MEDS ORDERED: RisperiDONE 1 MG TABLET PO ONE (21:30)
[2019-08-14] MEDS ORDERED: LORazepam 2 MG/ML VIAL IVP ONE (21:30)
[2019-08-14 21:32] LABS: ALANINE AMINOTRANSFERASE 26 U/L (12-78); ALBUMIN 3.6 g/dL (3.4-5.0); ALKALINE PHOSPHATASE 50 U/L (46-116); ASPARTATE AMINOTRANSFERASE 13 U/L (15-37); BILIRUBIN,TOTAL 0.3 mg/dL (0.1-1.0); CREATINE KINASE, TOTAL ONLY 103 U/L (39-308); LIPASE 218 U/L (73-393); TOTAL PROTEIN, SERUM 7.3 g/dL (6.4-8.2)
[2019-08-14 21:48] LABS: VALPROIC ACID < 3 mcg/mL (50-100)
[2019-08-14] MEDS ORDERED: ACETAMINOPHEN 325 MG TABLET PO PRN ×2 (22:15→23:00)
[2019-08-14] MEDS ORDERED: 0.9% SODIUM CHLORIDE 10 ML SYRINGE IVP PRN (22:15)
[2019-08-14] MEDS ORDERED: ONDANSETRON HCL 4 MG/2 ML VIAL IVP PRN (22:15)
[2019-08-14] MEDS ORDERED: NITROGLYCERIN 2% (1 GM=INCH) PACKET TP ONE (22:15)
[2019-08-14] MEDS ORDERED: DEXTROSE 50%-WATER 25 GM/50 ML SYRINGE IVP PRN (22:45)
[2019-08-14] MEDS ORDERED: INSULIN LISPRO 100 UNITS/ML SQ PRN (22:45)
[2019-08-14] MEDS ORDERED: MAGNESIUM HYDROXIDE SUSPENSION 30 ML UDCUP PO PRN (23:00)
[2019-08-15 00:59] LABS: APPEARANCE,URINE CLEAR (CLEAR); BILIRUBIN,URINE NEGATIVE (NEGATIVE); GLUCOSE, URINE (UA) NEGATIVE (NEGATIVE); KETONES,URINE NEGATIVE (NEGATIVE); LEUKOCYTE ESTERASE ,URINE NEGATIVE (NEGATIVE); NITRATE,URINE NEGATIVE (NEGATIVE); OCCULT BLOOD,URINE NEGATIVE (NEGATIVE); PROTEIN,URINE NEGATIVE (NEGATIVE); UROBILINOGEN,URINE 0.2 mg/dL (<=1.0)
[2019-08-15] MEDS: HEPARIN SODIUM,PORCINE 5,000 UNITS/ML VIAL SQ SCH ×3 (01:07→15:54)
[2019-08-15 07:16] LABS: GLUCOSE,POINT OF CARE 85 MG/DL (70-110)
[2019-08-15] MEDS: DIVALPROEX SODIUM 500 MG DR TABLET PO SCH ×2 (08:49→08:51)
[2019-08-15] MEDS: DOCUSATE SODIUM 100 MG CAPSULE PO SCH ×2 (08:49→20:36)
[2019-08-15] MEDS: FAMOTIDINE 20 MG TABLET PO SCH (08:49)
[2019-08-15 09:01] VITALS: BP 145/83
[2019-08-15 12:19] VITALS: BP 136/78
[2019-08-15 16:23] VITALS: BP 140/66
[2019-08-15 17:26] LABS: GLUCOMETER DEV NAME(LOC) 5N.2; GLUCOSE,POINT OF CARE 96 MG/DL (70-110)
[2019-08-15 20:01] VITALS: BP 110/53
[2019-08-15] MEDS: RisperiDONE 4 MG TABLET PO SCH (20:35)
[2019-08-15 20:52] LABS: GLUCOMETER DEV NAME(LOC) 5S.2A; GLUCOSE,POINT OF CARE 110 MG/DL (70-110)
[2019-08-15 22:19] LABS: GLUCOMETER DEV NAME(LOC) 5N.2; GLUCOSE,POINT OF CARE 88 MG/DL (70-110)
[2019-08-16] VITALS (7 sets, daily range): BP systolic 101–147; BP diastolic 56–72
[2019-08-16 06:50] LABS: GLUCOMETER DEV NAME(LOC) 5S.2A; GLUCOSE,POINT OF CARE 78 MG/DL (70-110)
[2019-08-16] MEDS: HEPARIN SODIUM,PORCINE 5,000 UNITS/ML VIAL SQ SCH ×3 (08:00→16:00)
[2019-08-16] MEDS: DIVALPROEX SODIUM 500 MG DR TABLET PO SCH (08:38)
[2019-08-16] MEDS: DOCUSATE SODIUM 100 MG CAPSULE PO SCH ×2 (08:38→19:52)
[2019-08-16] MEDS: FAMOTIDINE 20 MG TABLET PO SCH (08:39)
[2019-08-16] MEDS ORDERED: HALO5I IM (14:26)
[2019-08-16] MEDS ORDERED: CLON0.1T83 PO (14:26)
[2019-08-16 15:35] LABS: GLUCOMETER DEV NAME(LOC) 5N.2; GLUCOSE,POINT OF CARE 89 MG/DL (70-110)
[2019-08-16] MEDS: RisperiDONE 4 MG TABLET PO SCH (19:52)
[2019-08-16] MEDS: CARVEDILOL 3.125 MG TABLET PO SCH (19:52)
[2019-08-16] MEDS ORDERED: ATORVASTATIN CALCIUM 20 MG TABLET PO SCH (21:00)
[2019-08-16 22:19] LABS: GLUCOMETER DEV NAME(LOC) 5N.2; GLUCOSE,POINT OF CARE 118 MG/DL (70-110)
[2019-08-16 22:29] LABS: GLUCOMETER DEV NAME(LOC) 5S.2A; GLUCOSE,POINT OF CARE 120 MG/DL (70-110)
[2019-08-17 04:43] VITALS: BP 139/72
[2019-08-17 06:43] LABS: GLUCOMETER DEV NAME(LOC) 5N.2; GLUCOSE,POINT OF CARE 102 MG/DL (70-110)
[2019-08-17 07:01] VITALS: BP 104/44
[2019-08-17] MEDS: HEPARIN SODIUM,PORCINE 5,000 UNITS/ML VIAL SQ SCH ×3 (08:00→16:39)
[2019-08-17] MEDS: FAMOTIDINE 20 MG TABLET PO SCH (08:20)
[2019-08-17 08:21] VITALS: BP 124/79
[2019-08-17] MEDS: DOCUSATE SODIUM 100 MG CAPSULE PO SCH (08:21)
[2019-08-17] MEDS: CARVEDILOL 3.125 MG TABLET PO SCH (08:22)
[2019-08-17] MEDS: DIVALPROEX SODIUM 500 MG DR TABLET PO SCH (08:23)
[2019-08-17] MEDS ORDERED: ASPIRIN 81 MG CHEWABLE TABLET PO SCH (09:00)
[2019-08-17] MEDS ORDERED: LISINOPRIL 5 MG TABLET PO SCH (09:00)
[2019-08-17] MEDS ORDERED: LISI-660 PO (11:03)
[2019-08-17 13:42] VITALS: BP 122/56
[2019-08-17 15:00] VITALS: BP 126/60
[2019-08-18] MEDS ORDERED: RisperiDONE 2 MG TABLET PO SCH (09:00)
[2019-08-18 11:47] LABS: GLUCOMETER DEV NAME(LOC) 5S.2A; GLUCOSE,POINT OF CARE 125 MG/DL (70-110)
[2019-08-18 11:47] LABS: GLUCOMETER DEV NAME(LOC) 5S.2A; GLUCOSE,POINT OF CARE 96 MG/DL (70-110)
== END 2019-08-17 18:15 | DRG 313 ==
LOC: EMS 20:00 → 5S 23:30
PROVIDERS: ADMIT Internal Medicine; ATTEND Internal Medicine
DX: R07.89 Other chest pain (principal); I50.22 Chronic systolic (congestive) heart failure; F29 Unspecified psychosis not due to a substance or known physiological condition; I25.10 Atherosclerotic heart disease of native coronary artery without angina pectoris; E11.9 Type 2 diabetes mellitus without complications; F31.9 Bipolar disorder, unspecified; E78.00 Pure hypercholesterolemia, unspecified; I11.0 Hypertensive heart disease with heart failure; E03.9 Hypothyroidism, unspecified; E78.5 Hyperlipidemia, unspecified; N40.0 Benign prostatic hyperplasia without lower urinary tract symptoms; F25.0 Schizoaffective disorder, bipolar type; K58.9 Irritable bowel syndrome, unspecified; Z79.4 Long term (current) use of insulin; Z91.19 Patient's noncompliance with other medical treatment and regimen; Z88.0 Allergy status to penicillin; Z91.013 Allergy to seafood
CPT/HCPCS: 93005; 93306; J1200; J1644; J2060

== ENCOUNTER 2019-08-17 18:35 | Inpatient (IN) | payer MEDICARE, MEDICAID ==
[~2019-08-17] VITALS: Ht 162.6 cm; Wt 62.1 kg
[~2019-08-17 18:35] MED LIST changes: +CLON0.1T83 PO; +HALO5I IM; +INSU100V SQ; +LISI-660 PO; +MULT1CAP32 PO; +OMEP20 PO; +RISP4 PO
[2019-08-17 21:00] VITALS: BP 110/57
[2019-08-17] MEDS ORDERED: PNEUMOCOCCAL VACCINE POLYVALENT 0.5 ML VIAL [PPSV23] IM ONE (21:15)
[2019-08-17] MEDS ORDERED: INFLUENZA VIRUS VACCINE QVS 2019-20 (3YR+)/PF 60 MCG/0.5 ML SYRINGE IM ONE (21:15)
[2019-08-17] MEDS: RisperiDONE 4 MG TABLET PO SCH (21:27)
[2019-08-17] MEDS ORDERED: DEXTROSE 50%-WATER 25 GM/50 ML SYRINGE IVP PRN (22:00)
[2019-08-17] MEDS ORDERED: INSULIN LISPRO 100 UNITS/ML SQ PRN (22:00)
[2019-08-17 22:44] LABS: GLUCOMETER DEV NAME(LOC) 3E.I 2; GLUCOSE,POINT OF CARE 93 MG/DL (70-110)
[2019-08-18 06:36] LABS: GLUCOMETER DEV NAME(LOC) 3E.I 2; GLUCOSE,POINT OF CARE 66 MG/DL (70-110)
[2019-08-18 07:19] LABS: GLUCOMETER DEV NAME(LOC) 3E.I 2; GLUCOSE,POINT OF CARE 163 MG/DL (70-110)
[2019-08-18] MEDS ORDERED: PETROLATUM,WHITE 28 GM JELLY TP PRN (08:30)
[2019-08-18] MEDS ORDERED: LOPERAMIDE HCL 2 MG CAPSULE PO PRN (08:30)
[2019-08-18] MEDS ORDERED: MAGNESIUM HYDROXIDE SUSPENSION 30 ML UDCUP PO PRN (08:30)
[2019-08-18] MEDS ORDERED: MAG HYDROX/AL HYDROX/SIMETH ES 30 ML SUSPENSION UDCUP PO PRN (08:30)
[2019-08-18] MEDS ORDERED: ONDANSETRON HCL 4 MG TABLET PO PRN (08:30)
[2019-08-18] MEDS ORDERED: BENZOCAINE/MENTHOL LOZENGE MM PRN (08:30)
[2019-08-18] MEDS ORDERED: CloNIDine HCL 0.1 MG TABLET PO PRN (08:30)
[2019-08-18] MEDS ORDERED: BACITRACIN 28.4 GM OINTMENT TP PRN (08:30)
[2019-08-18] MEDS ORDERED: ALBUTEROL SULFATE HFA 90 MCG/PUFF 8 GM INHALER IH PRN (08:30)
[2019-08-18] MEDS: IBUPROFEN 600 MG TABLET PO PRN ×2 (08:43→16:12)
[2019-08-18] MEDS: RisperiDONE 2 MG TABLET PO SCH (08:44)
[2019-08-18] MEDS: FAMOTIDINE 20 MG TABLET PO SCH (08:44)
[2019-08-18] MEDS: OMEPRAZOLE 20 MG CAPSULE PO SCH (08:48)
[2019-08-18] MEDS: DOCUSATE SODIUM 100 MG CAPSULE PO SCH (08:48)
[2019-08-18] MEDS: ASPIRIN 81 MG EC TABLET PO SCH (08:48)
[2019-08-18] MEDS: DIVALPROEX SODIUM 500 MG DR TABLET PO SCH (08:50)
[2019-08-18] MEDS ORDERED: CARVEDILOL 3.125 MG TABLET PO SCH (09:00)
[2019-08-18] MEDS ORDERED: DOCUSATE SODIUM 100 MG CAPSULE PO SCH (09:00)
[2019-08-18] MEDS ORDERED: DEXTROSE 50%-WATER 25 GM/50 ML SYRINGE IVP PRN (09:15)
[2019-08-18] MEDS: LISINOPRIL 5 MG TABLET PO SCH (09:42)
[2019-08-18 11:21] LABS: GLUCOMETER DEV NAME(LOC) 3E.I 2; GLUCOSE,POINT OF CARE 102 MG/DL (70-110)
[2019-08-18] MEDS: ACETAMINOPHEN 325 MG TABLET PO PRN (14:01)
[2019-08-18 17:35] LABS: GLUCOMETER DEV NAME(LOC) 3E.I 2; GLUCOSE,POINT OF CARE 94 MG/DL (70-110)
[2019-08-18 20:07] VITALS: BP 104/56
[2019-08-18] MEDS: RisperiDONE 4 MG TABLET PO SCH (21:00)
[2019-08-18] MEDS: TAMSULOSIN HCL 0.4 MG CAPSULE PO SCH (21:02)
[2019-08-18] MEDS: ATORVASTATIN CALCIUM 20 MG TABLET PO SCH (21:02)
[2019-08-18] MEDS: INSULIN LISPRO 100 UNITS/ML SQ PRN (21:12)
[2019-08-18 21:34] LABS: GLUCOMETER DEV NAME(LOC) 3E.I 2; GLUCOSE,POINT OF CARE 153 MG/DL (70-110)
[2019-08-19] MEDS: IBUPROFEN 600 MG TABLET PO PRN (04:38)
[2019-08-19 05:59] LABS: GLUCOMETER DEV NAME(LOC) 3E.I 2; GLUCOSE,POINT OF CARE 88 MG/DL (70-110)
[2019-08-19 06:15] VITALS: BP 113/55
[2019-08-19] MEDS: MetFORMIN HCL 500 MG TABLET PO SCH (06:55)
[2019-08-19] MEDS: LEVOTHYROXINE SODIUM 100 MCG TABLET PO SCH (06:55)
[2019-08-19] MEDS: ASPIRIN 81 MG EC TABLET PO SCH (08:33)
[2019-08-19] MEDS: CHOLECALCIFEROL (VIT D3) 1,000 UNITS TABLET PO SCH (08:33)
[2019-08-19] MEDS: ISOSORBIDE MONONITRATE 30 MG ER TABLET PO SCH (08:33)
[2019-08-19] MEDS: LISINOPRIL 5 MG TABLET PO SCH (08:34)
[2019-08-19] MEDS: OMEPRAZOLE 20 MG CAPSULE PO SCH (08:35)
[2019-08-19] MEDS: FAMOTIDINE 20 MG TABLET PO SCH (08:36)
[2019-08-19] MEDS: DOCUSATE SODIUM 100 MG CAPSULE PO SCH (08:36)
[2019-08-19] MEDS: MULTIVITAMINS, THERAPEUTIC TABLET PO SCH (08:36)
[2019-08-19] MEDS: METOPROLOL SUCCINATE 25 MG ER TABLET PO SCH (08:36)
[2019-08-19 08:43] VITALS: BP 117/80
[2019-08-19] MEDS: DIVALPROEX SODIUM 500 MG DR TABLET PO SCH (08:47)
[2019-08-19] MEDS: RisperiDONE 2 MG TABLET PO SCH (08:48)
[2019-08-19 11:21] LABS: GLUCOMETER DEV NAME(LOC) 3E.I 2; GLUCOSE,POINT OF CARE 111 MG/DL (70-110)
[2019-08-19 16:13] VITALS: BP 109/55
[2019-08-19 16:27] LABS: GLUCOMETER DEV NAME(LOC) 3E.I 2; GLUCOSE,POINT OF CARE 97 MG/DL (70-110)
[2019-08-19] MEDS: TAMSULOSIN HCL 0.4 MG CAPSULE PO SCH (21:34)
[2019-08-19] MEDS: ATORVASTATIN CALCIUM 20 MG TABLET PO SCH (21:34)
[2019-08-19] MEDS: RisperiDONE 4 MG TABLET PO SCH (21:34)
[2019-08-20 05:39] LABS: GLUCOMETER DEV NAME(LOC) 3E.I 2; GLUCOSE,POINT OF CARE 97 MG/DL (70-110)
[2019-08-20] MEDS: LEVOTHYROXINE SODIUM 100 MCG TABLET PO SCH (06:42)
[2019-08-20] MEDS: MetFORMIN HCL 500 MG TABLET PO SCH (06:42)
[2019-08-20] MEDS: RisperiDONE 2 MG TABLET PO SCH (08:36)
[2019-08-20] MEDS: METOPROLOL SUCCINATE 25 MG ER TABLET PO SCH (08:36)
[2019-08-20] MEDS: LISINOPRIL 5 MG TABLET PO SCH (08:36)
[2019-08-20] MEDS: FAMOTIDINE 20 MG TABLET PO SCH (08:36)
[2019-08-20] MEDS: DOCUSATE SODIUM 100 MG CAPSULE PO SCH (08:36)
[2019-08-20] MEDS: CHOLECALCIFEROL (VIT D3) 1,000 UNITS TABLET PO SCH (08:36)
[2019-08-20] MEDS: OMEPRAZOLE 20 MG CAPSULE PO SCH (08:36)
[2019-08-20] MEDS: MULTIVITAMINS, THERAPEUTIC TABLET PO SCH (08:36)
[2019-08-20] MEDS: ASPIRIN 81 MG EC TABLET PO SCH (08:36)
[2019-08-20] MEDS: ISOSORBIDE MONONITRATE 30 MG ER TABLET PO SCH (08:37)
[2019-08-20 08:51] VITALS: BP 138/59
[2019-08-20 12:53] LABS: GLUCOMETER DEV NAME(LOC) 3E.I 2; GLUCOSE,POINT OF CARE 99 MG/DL (70-110)
[2019-08-20 16:43] VITALS: BP 120/80
[2019-08-20 17:14] LABS: GLUCOMETER DEV NAME(LOC) 3E.I 2; GLUCOSE,POINT OF CARE 117 MG/DL (70-110)
[2019-08-20 18:26] VITALS: BP 120/80
[2019-08-20] MEDS: ACETAMINOPHEN 325 MG TABLET PO PRN (18:26)
[2019-08-20] MEDS: TAMSULOSIN HCL 0.4 MG CAPSULE PO SCH (20:17)
[2019-08-20] MEDS: RisperiDONE 4 MG TABLET PO SCH (20:17)
[2019-08-20] MEDS: ATORVASTATIN CALCIUM 20 MG TABLET PO SCH (20:18)
[2019-08-21 05:14] VITALS: BP 117/55
[2019-08-21 05:48] LABS: GLUCOMETER DEV NAME(LOC) 3E.I 2; GLUCOSE,POINT OF CARE 98 MG/DL (70-110)
[2019-08-21] MEDS: LEVOTHYROXINE SODIUM 100 MCG TABLET PO SCH (06:48)
[2019-08-21] MEDS: MetFORMIN HCL 500 MG TABLET PO SCH (06:48)
[2019-08-21 08:10] VITALS: BP 104/52
[2019-08-21] MEDS: RisperiDONE 2 MG TABLET PO SCH (08:41)
[2019-08-21] MEDS: CHOLECALCIFEROL (VIT D3) 1,000 UNITS TABLET PO SCH (08:41)
[2019-08-21] MEDS: ASPIRIN 81 MG EC TABLET PO SCH (08:41)
[2019-08-21] MEDS: DOCUSATE SODIUM 100 MG CAPSULE PO SCH (08:41)
[2019-08-21] MEDS: OMEPRAZOLE 20 MG CAPSULE PO SCH (08:41)
[2019-08-21] MEDS: MULTIVITAMINS, THERAPEUTIC TABLET PO SCH (08:41)
[2019-08-21] MEDS: FAMOTIDINE 20 MG TABLET PO SCH (08:41)
[2019-08-21] MEDS: LISINOPRIL 5 MG TABLET PO SCH (08:42)
[2019-08-21] MEDS: ISOSORBIDE MONONITRATE 30 MG ER TABLET PO SCH (08:42)
[2019-08-21] MEDS: METOPROLOL SUCCINATE 25 MG ER TABLET PO SCH (08:43)
[2019-08-21 11:35] LABS: GLUCOMETER DEV NAME(LOC) 3E.I 2; GLUCOSE,POINT OF CARE 102 MG/DL (70-110)
[2019-08-21] MEDS ORDERED: HYPROMELLOSE 0.5% 15 ML OPHTHALMIC SOLUTION OU PRN (14:30)
[2019-08-21 16:39] VITALS: BP 103/56
[2019-08-21] MEDS: ATORVASTATIN CALCIUM 20 MG TABLET PO SCH (20:39)
[2019-08-21] MEDS: TAMSULOSIN HCL 0.4 MG CAPSULE PO SCH (20:40)
[2019-08-21] MEDS: RisperiDONE 4 MG TABLET PO SCH (20:41)
[2019-08-21 22:13] LABS: GLUCOMETER DEV NAME(LOC) 3E.I 2; GLUCOSE,POINT OF CARE 94 MG/DL (70-110)
[2019-08-22 05:55] LABS: GLUCOMETER DEV NAME(LOC) 3E.I 2; GLUCOSE,POINT OF CARE 95 MG/DL (70-110)
[2019-08-22 06:00] VITALS: BP 101/59
[2019-08-22] MEDS: LEVOTHYROXINE SODIUM 100 MCG TABLET PO SCH (06:49)
[2019-08-22] MEDS: MetFORMIN HCL 500 MG TABLET PO SCH (06:49)
[2019-08-22] MEDS: LISINOPRIL 5 MG TABLET PO SCH ×2 (09:00→10:00)
[2019-08-22] MEDS: ISOSORBIDE MONONITRATE 30 MG ER TABLET PO SCH ×2 (09:00→10:00)
[2019-08-22] MEDS: METOPROLOL SUCCINATE 25 MG ER TABLET PO SCH ×2 (09:00→10:01)
[2019-08-22 10:00] VITALS: BP 103/51
[2019-08-22] MEDS: ASPIRIN 81 MG EC TABLET PO SCH (10:00)
[2019-08-22] MEDS: RisperiDONE 2 MG TABLET PO SCH (10:00)
[2019-08-22] MEDS: DOCUSATE SODIUM 100 MG CAPSULE PO SCH (10:00)
[2019-08-22] MEDS: FAMOTIDINE 20 MG TABLET PO SCH (10:01)
[2019-08-22] MEDS: MULTIVITAMINS, THERAPEUTIC TABLET PO SCH (10:01)
[2019-08-22] MEDS: OMEPRAZOLE 20 MG CAPSULE PO SCH (10:01)
[2019-08-22] MEDS: CHOLECALCIFEROL (VIT D3) 1,000 UNITS TABLET PO SCH (10:01)
[2019-08-22] MEDS: INSULIN LISPRO 100 UNITS/ML SQ PRN ×3 (11:49→22:31)
[2019-08-22 11:52] LABS: GLUCOMETER DEV NAME(LOC) 3E.I 2; GLUCOSE,POINT OF CARE 79 MG/DL (70-110)
[2019-08-22 16:09] VITALS: BP 113/7
[2019-08-22 17:03] LABS: GLUCOMETER DEV NAME(LOC) 3E.I 2; GLUCOSE,POINT OF CARE 132 MG/DL (70-110)
[2019-08-22] MEDS: ATORVASTATIN CALCIUM 20 MG TABLET PO SCH (20:44)
[2019-08-22] MEDS: RisperiDONE 4 MG TABLET PO SCH (20:44)
[2019-08-22] MEDS: TAMSULOSIN HCL 0.4 MG CAPSULE PO SCH (20:44)
[2019-08-22] MEDS: ACETAMINOPHEN 325 MG TABLET PO PRN (20:45)
[2019-08-22 21:00] LABS: GLUCOMETER DEV NAME(LOC) 3E.I 2; GLUCOSE,POINT OF CARE 115 MG/DL (70-110)
[2019-08-23 05:38] LABS: GLUCOMETER DEV NAME(LOC) 3E.I 2; GLUCOSE,POINT OF CARE 93 MG/DL (70-110)
[2019-08-23] MEDS: LEVOTHYROXINE SODIUM 100 MCG TABLET PO SCH (06:51)
[2019-08-23] MEDS: MetFORMIN HCL 500 MG TABLET PO SCH (06:51)
[2019-08-23] MEDS: DOCUSATE SODIUM 100 MG CAPSULE PO SCH (10:52)
[2019-08-23] MEDS: ASPIRIN 81 MG EC TABLET PO SCH (10:52)
[2019-08-23] MEDS: RisperiDONE 2 MG TABLET PO SCH (10:53)
[2019-08-23] MEDS: MULTIVITAMINS, THERAPEUTIC TABLET PO SCH (10:53)
[2019-08-23] MEDS: OMEPRAZOLE 20 MG CAPSULE PO SCH (10:53)
[2019-08-23] MEDS: FAMOTIDINE 20 MG TABLET PO SCH (10:53)
[2019-08-23] MEDS: CHOLECALCIFEROL (VIT D3) 1,000 UNITS TABLET PO SCH (10:53)
[2019-08-23] MEDS: ISOSORBIDE MONONITRATE 30 MG ER TABLET PO SCH (10:53)
[2019-08-23] MEDS: LISINOPRIL 5 MG TABLET PO SCH (10:53)
[2019-08-23] MEDS: METOPROLOL SUCCINATE 25 MG ER TABLET PO SCH (10:53)
[2019-08-23 11:25] LABS: GLUCOMETER DEV NAME(LOC) 3E.I 2; GLUCOSE,POINT OF CARE 106 MG/DL (70-110)
[2019-08-23] MEDS: INSULIN LISPRO 100 UNITS/ML SQ PRN (20:09)
[2019-08-23] MEDS: ATORVASTATIN CALCIUM 20 MG TABLET PO SCH (20:11)
[2019-08-23] MEDS: TAMSULOSIN HCL 0.4 MG CAPSULE PO SCH (20:11)
[2019-08-23] MEDS: RisperiDONE 4 MG TABLET PO SCH (20:11)
[2019-08-23 21:00] VITALS: BP 103/56
[2019-08-24] MEDS: IBUPROFEN 600 MG TABLET PO PRN (02:08)
[2019-08-24 05:58] LABS: GLUCOMETER DEV NAME(LOC) 3E.I 2; GLUCOSE,POINT OF CARE 95 MG/DL (70-110)
[2019-08-24] MEDS: LEVOTHYROXINE SODIUM 100 MCG TABLET PO SCH (06:32)
[2019-08-24] MEDS: MetFORMIN HCL 500 MG TABLET PO SCH (06:32)
[2019-08-24 08:34] VITALS: BP 127/68
[2019-08-24] MEDS: MULTIVITAMINS, THERAPEUTIC TABLET PO SCH (09:01)
[2019-08-24] MEDS: DOCUSATE SODIUM 100 MG CAPSULE PO SCH (09:01)
[2019-08-24] MEDS: FAMOTIDINE 20 MG TABLET PO SCH (09:01)
[2019-08-24] MEDS: ASPIRIN 81 MG EC TABLET PO SCH (09:01)
[2019-08-24] MEDS: CHOLECALCIFEROL (VIT D3) 1,000 UNITS TABLET PO SCH (09:01)
[2019-08-24] MEDS: METOPROLOL SUCCINATE 25 MG ER TABLET PO SCH (09:01)
[2019-08-24] MEDS: ISOSORBIDE MONONITRATE 30 MG ER TABLET PO SCH (09:01)
[2019-08-24] MEDS: OMEPRAZOLE 20 MG CAPSULE PO SCH (09:01)
[2019-08-24] MEDS: LISINOPRIL 5 MG TABLET PO SCH (09:02)
[2019-08-24] MEDS: RisperiDONE 2 MG TABLET PO SCH (09:03)
[2019-08-24] MEDS: INSULIN LISPRO 100 UNITS/ML SQ PRN (11:36)
[2019-08-24 11:42] LABS: GLUCOMETER DEV NAME(LOC) 3E.I 2; GLUCOSE,POINT OF CARE 92 MG/DL (70-110)
[2019-08-24 17:49] LABS: GLUCOMETER DEV NAME(LOC) 3E.I 2; GLUCOSE,POINT OF CARE 102 MG/DL (70-110)
[2019-08-24 18:47] VITALS: BP 110/60
[2019-08-24] MEDS: RisperiDONE 4 MG TABLET PO SCH (20:20)
[2019-08-24] MEDS: TAMSULOSIN HCL 0.4 MG CAPSULE PO SCH (20:20)
[2019-08-24] MEDS: ATORVASTATIN CALCIUM 20 MG TABLET PO SCH (20:20)
[2019-08-24 21:26] LABS: GLUCOMETER DEV NAME(LOC) 3E.I 2; GLUCOSE,POINT OF CARE 128 MG/DL (70-110)
[2019-08-25 05:33] LABS: GLUCOMETER DEV NAME(LOC) 3E.I 2; GLUCOSE,POINT OF CARE 86 MG/DL (70-110)
[2019-08-25] MEDS: MetFORMIN HCL 500 MG TABLET PO SCH (06:41)
[2019-08-25] MEDS: LEVOTHYROXINE SODIUM 100 MCG TABLET PO SCH (06:41)
[2019-08-25] MEDS: ACETAMINOPHEN 325 MG TABLET PO PRN ×2 (06:41→16:56)
[2019-08-25 08:00] VITALS: BP 120/59
[2019-08-25] MEDS: MULTIVITAMINS, THERAPEUTIC TABLET PO SCH (08:20)
[2019-08-25] MEDS: ISOSORBIDE MONONITRATE 30 MG ER TABLET PO SCH (08:20)
[2019-08-25] MEDS: ASPIRIN 81 MG EC TABLET PO SCH (08:20)
[2019-08-25] MEDS: FAMOTIDINE 20 MG TABLET PO SCH (08:21)
[2019-08-25] MEDS: LISINOPRIL 5 MG TABLET PO SCH (08:21)
[2019-08-25] MEDS: DOCUSATE SODIUM 100 MG CAPSULE PO SCH (08:22)
[2019-08-25] MEDS: METOPROLOL SUCCINATE 25 MG ER TABLET PO SCH (08:22)
[2019-08-25] MEDS: OMEPRAZOLE 20 MG CAPSULE PO SCH (08:22)
[2019-08-25] MEDS: RisperiDONE 2 MG TABLET PO SCH (08:22)
[2019-08-25] MEDS: CHOLECALCIFEROL (VIT D3) 1,000 UNITS TABLET PO SCH (08:22)
[2019-08-25 11:58] LABS: GLUCOMETER DEV NAME(LOC) 3E.I 2; GLUCOSE,POINT OF CARE 100 MG/DL (70-110)
[2019-08-25] MEDS: INSULIN LISPRO 100 UNITS/ML SQ PRN ×2 (11:59→20:24)
[2019-08-25 16:35] VITALS: BP 105/46
[2019-08-25 17:07] LABS: GLUCOMETER DEV NAME(LOC) 3E.I 2; GLUCOSE,POINT OF CARE 95 MG/DL (70-110)
[2019-08-25] MEDS: RisperiDONE 4 MG TABLET PO SCH (20:12)
[2019-08-25] MEDS: ATORVASTATIN CALCIUM 20 MG TABLET PO SCH (20:12)
[2019-08-25] MEDS: TAMSULOSIN HCL 0.4 MG CAPSULE PO SCH (20:12)
[2019-08-25 20:29] LABS: GLUCOMETER DEV NAME(LOC) 3E.I 2; GLUCOSE,POINT OF CARE 151 MG/DL (70-110)
[2019-08-26 05:47] LABS: GLUCOMETER DEV NAME(LOC) 3E.I 2; GLUCOSE,POINT OF CARE 89 MG/DL (70-110)
[2019-08-26 06:34] VITALS: BP 100/46
[2019-08-26] MEDS: MetFORMIN HCL 500 MG TABLET PO SCH (06:36)
[2019-08-26] MEDS: LEVOTHYROXINE SODIUM 100 MCG TABLET PO SCH (06:36)
[2019-08-26 08:49] VITALS: BP 139/52
[2019-08-26] MEDS: MULTIVITAMINS, THERAPEUTIC TABLET PO SCH (08:49)
[2019-08-26] MEDS: RisperiDONE 2 MG TABLET PO SCH (08:50)
[2019-08-26] MEDS: METOPROLOL SUCCINATE 25 MG ER TABLET PO SCH (08:50)
[2019-08-26] MEDS: FAMOTIDINE 20 MG TABLET PO SCH (08:50)
[2019-08-26] MEDS: ASPIRIN 81 MG EC TABLET PO SCH (08:50)
[2019-08-26] MEDS: LISINOPRIL 5 MG TABLET PO SCH (08:50)
[2019-08-26] MEDS: CHOLECALCIFEROL (VIT D3) 1,000 UNITS TABLET PO SCH (08:50)
[2019-08-26] MEDS: DOCUSATE SODIUM 100 MG CAPSULE PO SCH (08:50)
[2019-08-26] MEDS: OMEPRAZOLE 20 MG CAPSULE PO SCH (08:50)
[2019-08-26] MEDS: ISOSORBIDE MONONITRATE 30 MG ER TABLET PO SCH (08:53)
[2019-08-26 08:58] VITALS: BP 139/52
[2019-08-26] MEDS: ACETAMINOPHEN 325 MG TABLET PO PRN (08:58)
[2019-08-26 11:19] LABS: GLUCOMETER DEV NAME(LOC) 3E.I 2; GLUCOSE,POINT OF CARE 104 MG/DL (70-110)
[2019-08-26] MEDS: INSULIN LISPRO 100 UNITS/ML SQ PRN (12:08)
[2019-08-26 16:42] VITALS: BP 99/51
[2019-08-26 17:38] LABS: GLUCOMETER DEV NAME(LOC) 3E.I 2; GLUCOSE,POINT OF CARE 103 MG/DL (70-110)
[2019-08-26] MEDS: ATORVASTATIN CALCIUM 20 MG TABLET PO SCH (20:33)
[2019-08-26] MEDS: RisperiDONE 4 MG TABLET PO SCH (20:33)
[2019-08-26] MEDS: TAMSULOSIN HCL 0.4 MG CAPSULE PO SCH (20:33)
[2019-08-26 20:58] LABS: GLUCOMETER DEV NAME(LOC) 3E.I 2; GLUCOSE,POINT OF CARE 104 MG/DL (70-110)
[2019-08-27 06:02] LABS: GLUCOMETER DEV NAME(LOC) 3E.I 2; GLUCOSE,POINT OF CARE 89 MG/DL (70-110)
[2019-08-27] MEDS: LEVOTHYROXINE SODIUM 100 MCG TABLET PO SCH (06:30)
[2019-08-27] MEDS: ACETAMINOPHEN 325 MG TABLET PO PRN ×2 (06:30→16:31)
[2019-08-27] MEDS: MetFORMIN HCL 500 MG TABLET PO SCH (06:30)
[2019-08-27] MEDS: OMEPRAZOLE 20 MG CAPSULE PO SCH (09:13)
[2019-08-27] MEDS: CHOLECALCIFEROL (VIT D3) 1,000 UNITS TABLET PO SCH (09:13)
[2019-08-27] MEDS: ASPIRIN 81 MG EC TABLET PO SCH (09:13)
[2019-08-27] MEDS: FAMOTIDINE 20 MG TABLET PO SCH (09:13)
[2019-08-27] MEDS: DOCUSATE SODIUM 100 MG CAPSULE PO SCH (09:14)
[2019-08-27] MEDS: LISINOPRIL 5 MG TABLET PO SCH (09:14)
[2019-08-27] MEDS: RisperiDONE 2 MG TABLET PO SCH (09:14)
[2019-08-27] MEDS: METOPROLOL SUCCINATE 25 MG ER TABLET PO SCH (09:14)
[2019-08-27] MEDS: MULTIVITAMINS, THERAPEUTIC TABLET PO SCH (09:14)
[2019-08-27] MEDS: ISOSORBIDE MONONITRATE 30 MG ER TABLET PO SCH (09:16)
[2019-08-27] MEDS ORDERED: DOCU-275 PO (10:14)
[2019-08-27] MEDS ORDERED: CHOL10002 PO (10:23)
[2019-08-27] MEDS ORDERED: FAMO20 PO (10:27)
[2019-08-27] MEDS ORDERED: RISP2 PO ×3 (10:30→15:05)
[2019-08-27 13:09] LABS: GLUCOMETER DEV NAME(LOC) 3EX.; GLUCOSE,POINT OF CARE 134 MG/DL (70-110)
== END 2019-08-27 18:15 | disposition home or self-care (01) | DRG 885 ==
LOC: 3EI 18:35
DX: F25.0 Schizoaffective disorder, bipolar type (principal); R45.851 Suicidal ideations; D64.9 Anemia, unspecified; E03.9 Hypothyroidism, unspecified; E11.9 Type 2 diabetes mellitus without complications; E55.9 Vitamin D deficiency, unspecified; E78.5 Hyperlipidemia, unspecified; F32.9 Major depressive disorder, single episode, unspecified; F41.9 Anxiety disorder, unspecified; G47.00 Insomnia, unspecified; I10 Essential (primary) hypertension; I25.10 Atherosclerotic heart disease of native coronary artery without angina pectoris; K59.00 Constipation, unspecified; M19.90 Unspecified osteoarthritis, unspecified site; Z79.899 Other long term (current) drug therapy; Z88.0 Allergy status to penicillin; Z91.013 Allergy to seafood
CPT/HCPCS: 87081; 97110; 97116; 97161; 97165